=== PATIENT | male | born 1990 | race Caucasian/White ===

== ENCOUNTER → 2024-09-22 | Outpatient (CLI) | payer OTHER, SELFPAY | END | disposition home or self-care (01) | LOC: LAB 12:07 | PROVIDERS: PCP Family Medicine; Referring Provider Internal Medicine Cardiovascular Disease; Visit Provider Internal Medicine Cardiovascular Disease | DX: R03.0 Elevated blood-pressure reading, without diagnosis of hypertension (principal) | CPT/HCPCS: 36415; 82088; 82384; 84244 ==

== ENCOUNTER → 2024-11-03 | Outpatient (CLI) | payer OTHER, SELFPAY ==
--- NOTE | 2024-11-03 07:48 | ECHOD_ITS ---
Reason For Study Reason For Study: HTN Procedure This was a 2D Doppler, Color Flow transthoracic echocardiogram. Exam performed in department. Left Ventricle Normal LV size. Left ventricular systolic function is normal. The left ventricular ejection fraction is 60 %. No regional wall motion abnormalities noted. Right Ventricle Normal RV size. Normal systolic function. Atria Normal left atrium. Normal right atrium. Mitral Valve Normal mitral valve. Mild-Moderate (1-2+) eccentric mitral valve insufficiency. Tricuspid Valve Normal tricuspid valve. Mild (1+) tricuspid valve insufficiency. Aortic Valve Trisinus/trileaflet aortic valve. Pulmonic Valve Normal pulmonic valve. Great Vessels Normal sized aortic root. The pulmonary artery is normal size. Inferior vena cava collapse with respiration. Pericardium/Pleural No pericardial effusion. MMode/2D Measurements & Calculations LVIDd: 4.6 cm IVSd: 1.2 cm Ao root diam: 3.0 cm LVIDs: 3.0 cm LVPWd: 1.1 cm RVDd: 3.7 cm FS: 33.6 % LAV(MOD-bp): 40.9 ml LVAd ap4: 26.9 cm2 SV(MOD-sp4): 46.1 ml LAV(MOD-bp) Indexed: 19.9 ml/m2 LVLd ap4: 7.9 cm SI(MOD-sp4): 22.5 ml/m2 LAV(MOD-sp2): 40.6 ml EDV(MOD-sp4): 77.3 ml LAV(MOD-sp4): 38.8 ml EDV(sp4-el): 77.6 ml LVAs ap4: 15.8 cm2 LVLs ap4: 6.8 cm ESV(MOD-sp4): 31.2 ml ESV(sp4-el): 31.1 ml EF(MOD-sp4): 59.7 % EF(sp4-el): 59.9 % SV(sp4-el): 46.5 ml LA A4 area: 15.4 cm2 LA dimension(2D): 3.8 cm RA A4 area: 14.7 cm2 TAPSE: 2.0 cm Time Measurements MV dec time: 0.24 sec Doppler Measurements & Calculations MV E max kofi: 59.7 cm/sec Lat Peak E' Kofi: 18.4 cm/sec Med Peak E' Kofi: 14.1 cm/sec MV A max kofi: 44.0 cm/sec E/E' lat: 3.2 E/E' med: 4.2 MV E/A: 1.4 MV V2 max: 71.2 cm/sec MV P1/2t max kofi: 72.0 cm/sec Ao V2 max: 112.0 cm/sec MV max P.0 mmHg MV P1/2t: 80.1 msec Ao max P.0 mmHg MV V2 mean: 31.5 cm/sec Ao V2 mean: 79.9 cm/sec MV mean P.49 mmHg MV dec slope: 263.5 cm/sec2 Ao mean P.9 mmHg MV V2 VTI: 26.3 cm MVA(P1/2t): 2.7 cm2 Ao V2 VTI: 25.5 cm AV (velocity ratio): 0.90 LV V1 max: 106.7 cm/sec MR max kofi: 492.2 cm/sec PA V2 max: 87.3 cm/sec LV V1 max P.6 mmHg MR max P.9 mmHg PA V2 mean: 63.1 cm/sec LV V1 mean P.4 mmHg LV V1 mean: 71.0 cm/sec LV V1 VTI: 23.0 cm TR max kofi: 179.2 cm/sec TR max P.8 mmHg ECHO/Echo Complete Interpretation Summary Normal LV size. Left ventricular systolic function is normal. The left ventricular ejection fraction is 60 %. Mild-Moderate (1-2+) eccentric mitral valve insufficiency. Mild (1+) tricuspid valve insufficiency. Ordering Physician: Carroll Hernandez Referring Physician: Carroll Hernandez Performed By: Talha Rdz RCS
--- NOTE | 2024-11-03 07:48 | RDU_ITS ---
Reason For Study Reason For Study: Elevated BP Right Renal Artery Left Renal Artery Right renal artery ostium 99.7/34 Left renal artery ostium 86.9/32.1 RSV/EDV. PSV/EDV. Right renal artery proximal 108.8/34 Left renal artery proximal PSV/EDV PSV/EDV. 125.3/48.6 . Right renal artery mid 74.4/32.9 PSV/EDV. Left renal artery mid 93.8/47.7 PSV/EDV . Right renal artery distal 98.2/34.5 Left renal artery distal 73.5/19.9 PSV/EDV. PSV/EDV. Right Renal Parenchyma Left Renal Parenchyma Upper Pole Medula 28.9/13 PSV/EDV. Left upper pole medulla 25.4/11.1 Right upper pole medulla EDR 0.4 . PSV/EDV . Right upper pole medulla R.I. 0.55 . Left upper pole medulla EDR 0.4 . Upper Ruben Cortx 18.5/7.5 PSV/EDV. Left upper pole medulla R.I. 0.56 . Right upper pole cortex EDR 0.4 . UP Cortex 21.5/9.5 PSV/EDV. Right upper pole cortex R.I. 0.60 . Left upper pole cortex EDR 0.4 . Right lower Pole medulla 26.7/10.8 Left upper pole cortex R.I. 0.56 . PSV/EDV . Left lower Pole medulla 25.9/11.1 Right lower pole medulla EDR 0.4 . PSV/EDV . Right lower pole medulla R.I. 0.60 . Left lower pole medulla EDR 0.4 . Lower Pole Cortex 17.9/8.6 PSV/EDV. Left lower pole medulla R.I. 0.57 . Right lower pole cortex EDR 0.5 . Lower Pole Cortx 19.9/9.5 PSV/EDV. Right lower pole cortex R.I. 0.52 . Left lower pole cortex EDR 0.5 . Right Renal Hilar Left lower pole cortex R.I. 0.52 . Right Hilar avg 55.9/25.5 PSV/EDV. Left Renal Hilar Right hilar acceleration time 30 m/sec. LT Hilar avg 52.1/26 PSV/EDV . Right Renal Dimensions Left hilar acceleration time 60 m/sec. Right kidney size 10.92 cm . Left Renal Dimensions Right cortical dimension 1.78 cm . Left kidney size 11.73 cm . Left cortical dimension 1.87 cm . Aorta Proximal abdominal aorta 1.45 x 1.46 cm . Proximal abdominal aorta peak systolic velocity is 149.1 cm/sec . Distal abdominal aorta 1.35 x 1.35 cm . Distal abdominal aorta peak systolic velocity is 108.8 cm/sec . VL/Renal Artery Duplex Ultrasound Interpretation Summary Right renal artery patent with normal velocities and no evidence of stenosis. Left renal artery patent with normal velocities and no evidence of stenosis. Right renal vein patent. Left renal vein patent. Right kidney normal in size. Left kidney normal in size. Ordering Physician: Carroll Hernandez Referring Physician: Rick Hickman Performed By: Cristine Bhandari RVT
== END | disposition home or self-care (01) ==
LOC: CVS 07:47
PROVIDERS: PCP Family Medicine; Referring Provider Internal Medicine Cardiovascular Disease; Visit Provider Internal Medicine Cardiovascular Disease
DX: I10 Essential (primary) hypertension (principal); I08.1 Rheumatic disorders of both mitral and tricuspid valves
CPT/HCPCS: 93306; 93788; 93975